=== PATIENT | male | born 1995 | race Caucasian/White ===

== ENCOUNTER 2023-01-13 08:40 | Emergency (ER) | payer SELFPAY ==
--- NOTE | ~2023-01-13 | XR_ITS ---
Lumbosacral Spine: AP and lateral views Clinical History: Pain Findings: The normal lordotic curve is maintained. The vertebral bodies and posterior elements are i ntact. The intervertebral disc spaces are preserved. The sacroiliac joints are normally outlined. Impression: No significant abnormality. Reviewed, dictated and finalized at [facility]. E I ASSISTANT Impression: No significant abnormality.
[2023-01-13 08:41] VITALS: BP 141/81; PULSE 86; RESP 16; TEMP 36.2; O2SAT 99
--- NOTE | 2023-01-13 10:42 | ED.BACK ---
HPI - Back Pain/Injury General Chief Complaint: Back Pain/Injury Stated Complaint: LOW BACK PAIN Time Seen by Provider: 01/13/23 10:07 Source: patient Mode of arrival: ambulatory Limitations: no limitations History of Present Illness HPI Narrative: This is a 27-year-old male that presents to the emergency department for low back pain ongoing over the last week. No known injury or trauma. Reports the pain is in the left side of his low back and radiates into his left leg. Worse with certain movements. He took Aleve the 1st 2 days and it did not help. He has not taken any pain medication since. Denies saddle anesthesia, bowel/bladder incontinence. Related Data Allergies Allergy/AdvReac Type Severity Reaction Status Date / Time No Known Allergies Allergy Unknown Verified 01/13/23 08:53 Review of Systems Review of Systems: CONSTITUTIONAL: Denies fever SKIN: Denies rash MUSCULOSKELETAL: Reports back pain, joint pain, and myalgia. NEUROLOGIC: Denies numbness, or weakness. All systems reviewed & are unremarkable except as noted in HPI and below PMFSH Past Medical History Medical History (Updated 01/13/23 @ 11:58 by Cecelia Albarran PA-C) No active medical problems Social History Social History (Updated 01/13/23 @ 10:44 by Cecelia Albarran PA-C) Smoking status: Current every day smoker Exam Narrative: GENERAL: Well-appearing, well-nourished, and in no acute distress. HEAD: Normocephalic, atraumatic. EYES: EOMI. CHEST: Clear to auscultation. No respiratory distress. No wheezes rales or rhonchi HEART: Regular rate and rhythm. No murmur heard. Normal peripheral pulses. BACK: No midline spinal tenderness EXTREMITIES: Normal range of motion. No edema. Strength equal in bilateral lower extremities (5/5) SKIN: Warm, dry, no rash. NEURO: No focal deficits. Alert and oriented x3. PSYCH: Normal mood and affect Course Course Emergency Course: Patient updated on workup and agrees with plan of care Vital Signs Vital signs: Vital Signs Temperature 97.2 F L 01/13/23 08:41 Pulse Rate 86 01/13/23 08:41 Respiratory Rate 16 01/13/23 08:41 Blood Pressure 141/81 H 01/13/23 08:41 Pulse Oximetry 99 01/13/23 08:41 Oxygen Delivery Room Air 01/13/23 08:41 Temperature 97.2 F L 01/13/23 08:41 Pulse Rate 86 01/13/23 08:41 Respiratory Rate 16 01/13/23 08:41 Blood Pressure 141/81 H 01/13/23 08:41 Pulse Oximetry 99 01/13/23 08:41 Oxygen Delivery Room Air 01/13/23 08:41 MDM - Back Pain/Injury MDM Narrative Medical decision making narrative: Patient presents to the emergency department for low back pain ongoing over the last week. Reports radiation down the left leg. Worse with certain position changes. He is neurovascularly intact. Lumbar spine x-ray without significant findings. Patient was updated on workup. Agrees with plan of care. Instructed to rest, use ice/heat, take over the counter pain medication as needed. Will be prescribed muscle relaxer as needed for pain. He is to follow up with PCP. He was given warnings to return to the ER Differential Diagnosis Differential diagnosis: Likely lumbar radiculopathy, sciatica and strain of lumbar region Imaging Data Radiologist's impression: ITS Impressions Lumbar Spine X-Ray 01/13/23 11:03 Impression: No significant abnormality. Critical Care Time Critical Care Time Critical Care Time: No Discharge Plan Discharge Clinical Impression: Sciatica Qualifiers: Laterality: left Qualified Code(s): M54.32 - Sciatica, left side Patient Disposition: Home, Self-Care Condition: Stable Instructions: Sciatica (ED) Additional Instructions: Return to the ER if you experience weakness, numbness, bowel/bladder incontinence, or any other symptoms that are concerning to you Rest, use ice/heat, take anti-inflammatories (Aleve, Ibuprofen, Naproxen, etc) or Tylenol as needed for pain as well as mus
[2023-01-13] MEDS: ACETAMINOPHEN 500 MG TABLET 1000 MG PO (11:02)
[2023-01-13] MEDS: KETOROLAC 30 MG/ML VIAL (*BKC) IM (11:03)
== END 2023-01-13 12:23 | disposition home or self-care (01) ==
PROVIDERS: Emergency Provider Physician Assistant
DX: M54.32 Sciatica, left side (principal); F17.200 Nicotine dependence, unspecified, uncomplicated
CPT/HCPCS: 72100; 96372; 99283; A9270; J1885

== ENCOUNTER 2024-05-29 00:50 | Emergency (ER) | payer BC, SELFPAY ==
[2024-05-29 00:51] VITALS: BP 123/77; PULSE 101; RESP 20; TEMP 36.4; O2SAT 99
--- OUTSIDE RECORDS SUMMARY | 2024-05-29 00:52 | XMS_ITS | Referral Summary ---
Author Organization [facility] Address [address] [place] [address] Care Team Providers Care Human Services Instructor Name Role Phone Shu Coppola NP Primary Care Provider [phone] Encounters Date Type Department Care Team Description 05/28/2024 10:55 PM CDT - 05/29/2024 12:26 AM CDT Emergency [facility] [address] [place] [address] Discharge Disposition: Left without being seen from Last 3 Months Allergies No known active allergies Medications No known medications Active Problems Problem Noted Date Diagnosed Date Cyst near coccyx 07/22/2020 BMI 27.0-27.9,adult 07/22/2020 Closed fracture of distal end of radius 07/27/19 12 Social History Tobacco Use Types Packs/Day Years Used Date Smoking Tobacco: Every Day Cigarettes 1 10 Smokeless Tobacco: Never AUDIT-C Answer Date Recorded Q1: How often do you have a drink containing alc ohol? Never 07/22/2020 Average Number of Drinks Not on file 021 Q3: How often do you have si x or more drinks on one occasion? Never 07/22/2020 PHQ-2 Answer Date Recorded PHQ-2 Total Score (If total score is 3 or more points, staff should administer the PHQ-9) 0 07/22/2020 Personal Safety Answer Date Recorded Have you ever been in or are you currently in a harmful physical or emotional relationship or is someone making you feel afraid or unsafe? 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 Gender Identity Not on file Sexual Orientation Not on file Last Filed Vital Signs Vital Sign Reading Time Taken Comments Blood Pressure 140/93 05/28/2024 10:56 PM CDT Pulse 86 05/28/2024 10:56 PM CDT Temperature 37.1 C (98.7 F) 05/28/2024 10:56 PM CDT Respiratory Rate 20 05/28/2024 10:56 PM CDT Oxygen Saturation 98% 05/28/2024 10:56 PM CDT Inhaled Oxygen Concentration - - Weight 76.2 kg (168 lb) 07/22/2020 2:15 PM CDT Height 167.6 cm (5' 6 ) 05/28/2024 10:56 PM CDT Body Mass Index 27.12 07/22/2020 2:15 PM CDT Plan of Treatment Not on file Insurance [employer] | [employer] O[employer] Care Teams Human Services Instructor Relationship Specialty Start Date End Date Shu Coppola NP PCP - General Internal Medicine 07/18/20"
--- OUTSIDE RECORDS SUMMARY | 2024-05-29 00:53 | XMS_ITS | Clinical Summary ---
Author Organization [facility] Address [address] [place] [address] Care Team Providers Care Tool Radial Drill Press Set Up Operator Name Role Phone Shu Coppola NP Primary Care Provider [phone] Allergies No known active allergies Medications No known medications Active Problems Problem Noted Date Diagnosed Date Cyst near coccyx 07/22/2020 BMI 27.0-27.9,adult 07/22/2020 Closed fracture of distal end of radius 07/27/19 12 Encounters Date Type Department Care Team Description 05/28/2024 10:55 PM CDT - 05/29/2024 12:26 AM CDT Emergency [facility] [address] [place] [address] Discharge Disposition: Left without being seen from Last 3 Months Surgical History Surgery Date Site/Laterality Comments ARM SURGERY 02/14/2015 - 02/14/2016 Right and wrist Medical History Medical History Date Comments Closed fracture of lower end of ulna Closed fracture of distal end of ulna - (Added by EDWIN Diaz) Family History Medical History Relation Name Comments No Known Problems Father No Known Problems Mother Relation Name Status Comments Father Alive Mother Alive Social History Tobacco Use Types Packs/Day Years [...] on file 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
--- OUTSIDE RECORDS SUMMARY | 2024-05-29 00:53 | XMS_ITS | Encounter Summary ---
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 Gender Identity Not on file Sexual Orientation Not on file documented as of this encounter Last Filed Vital Signs Vital Sign Reading Time Taken Comments Blood Pressure 140/93 05/28/2024 10:56 PM CDT Pulse 86 05/28/2024 10:56 PM CDT Temperature 37.1 C (98.7 F) 05/28/2024 10:56 PM CDT Respiratory Rate 20 05/28/2024 10:56 PM CDT Oxygen Saturation 98% 05/28/2024 10:56 PM CDT Inhaled Oxygen Concentration - - Weight - - Height 167.6 cm (5' 6 ) 05/28/2024 10:56 PM CDT Body Mass Index - - documented in this encounter Discharge Disposition Disposition Code Departure Means Destination Left without being seen documented in this encounter ED Notes * [facility] - 05/28/2024 10:59 PM CDT Pt states My low back has been bothering me since , I felt like it was getting better but tonight I laid down and couldn't get back up. Pt denies saddle anesthesia, able to bear weight, denies trauma to low back. documented in this encounter Plan of Treatment Not on file documented as of this encounter Visit Diagnoses Not on filedocumented in this encounter Care Teams Rn Appeals Relationship Specialty Start Date End Date Shu Coppola NP PCP - General Internal Medicine 07/18/20 documented as of this encounter
--- NOTE | 2024-05-29 01:47 | ED.BACK ---
HPI - Back Pain/Injury General Chief Complaint: Back Pain/Injury Stated Complaint: extreme back pain Time Seen by Provider: 05/29/24 01:46 Source: patient Mode of arrival: ambulatory Limitations: no limitations History of Present Illness HPI Narrative: Patient presents with back pain starting 5 days ago but worse today. He has been taking 2 Tylenol tablets daily and 2 200mg tablets of ibuprofen every day. States it feels like a pinched nerve. Pain is in the low back, just right of the middle. Also has paresthesias/pain along anterolateral right thigh. Wears tight pants/belt, works in construction. He had taken an EMS ambulance to [place] earlier but waited in the waiting room for several hours so presents here. 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 No saddle anethesias. No incontinence bowel/bladder. No dysuria, hematuria, urgency but he has had increased frequency. No fevers, cancer, anticoagulation. No abdominal pain or syncope. No IVDU or immunosuppression like HIV or chronic steroids. Patient has not been annually to see a primary care provider although he does note that he had previously seen his partner's. Their name was Lorna. Related Data Allergies Allergy/AdvReac Type Severity Reaction Status Date / Time No Known Allergies Allergy Unknown Verified 05/29/24 01:05 [facility] Past Medical History Medical History Sciatica, left side December 2022 Social History Social History Smoking status: Current every day smoker Other substance usage details: denies IVDU Occupation/Education: occupation Additional occupation/education comments: construction Exam Narrative: GENERAL: Well-appearing, well-nourished, and in no acute distress. HEAD: Normocephalic, atraumatic. EYES: Non injected, non icteric ENT: Nares clear, no rhinorrhea or epistaxis. NECK: Supple. CHEST: Speaking in full sentences. No respiratory distress. HEART: Regular rate and rhythm. . ABDOMEN: Soft, nondistended. EXTREMITIES: Normal range of motion. No lower extremity edema. SKIN: Warm, dry, no rash. Back: No tenderness to palpation of midline lumbar spinous processes. No bony step offs. No tenderness to palpation of paraspinal muscles which are without spasm. Straight leg test negative bilaterally. Demonstrates flexion/extension and some rotational movement. NEURO: No focal deficits. Alert and oriented x3. 5/5 strength with ankle dorsiflexion/plantarflexion, knee flexion/extension, hip flexion/abduction/adduction. Sensation intact to gross touch in bilateral lower extremities. Patellar reflexes symmetric, brisk. PSYCH: Normal mood and affect. Course Vital Signs Vital signs: Vital Signs Temperature 97.6 F 05/29/24 00:51 Pulse Rate 101 H 05/29/24 00:51 Respiratory Rate 20 05/29/24 00:51 Blood Pressure 123/77 05/29/24 00:51 Pulse Oximetry 99 05/29/24 00:51 Oxygen Delivery Room Air 05/29/24 00:51 Temperature 97.6 F 05/29/24 00:51 Pulse Rate 73 05/29/24 03:44 Respiratory Rate 18 05/29/24 03:44 Blood Pressure 112/73 05/29/24 03:44 Pulse Oximetry 97 05/29/24 03:44 Oxygen Delivery Room Air 05/29/24 00:51 MDM - Back Pain/Injury MDM Narrative Medical decision making narrative: Patient presents with back pain of 5 days duration. In the emergency department he is afebrile vital signs notable for mild tachycardia. Back has no deformities, external skin changes, or signs of trauma. Curvature is within normal limits. No tenderness is noted on palpation of the spinous processes which are midline. Lumbar paraspinal muscles are not tender and are without spasm. Patient demonstrates flexion, extension, and [id number] rotation of the lumbar spine. Sensation to the lower extremities is normal bilaterally. Dorsi/plantar flexion is normal bilaterally. Straight leg raise test is negative bilaterally. They do not have any other red flags for fracture, malignancy, infection (e.g. spinal epidural abscess), or aortic/vascular: Age, no trauma, not on chronic steroids, no cancer, no fever, IV drug use, HIV, immunosuppression, abdominal pain, tearing pain, syncope. He does have increased urinary frequency but otherwise without other urinary symptoms, only 16mL on PVR, and normal UA. Given this, will defer further imaging at this time. Patient was initially given an opiate. Ketorolac was added anti-inflammatory properties. Whenl patient has been reassessed he was still having some pain and so Valium was ordered for muscle relaxation. Patient reassessed approximately 3:15 a.m. and he states he is feeling improved. We discussed appropriate/safe dosing of APAP and NSAIDs and that he can safely increase dose/frequency. Also prescribed muscle relaxer and topical approach. Discussed the role of multimodal pain control to balance rest with maintaining activity. Verifies understanding. Given strict ED return precautions as well as referral to a PCP if needed. Differential Diagnosis Differential diagnosis: Likely sciatica, strain of lumbar region and other (meralgia paresthetica) Medical Records Attestation: I reviewed the patient's medical records. Medical records narrative: Patient was seen for sciatica in December of 2022 Lab Data Labs: Lab Results 05/29/24 Range/Units 02:12 Urine Color Yellow (Yellow) Urine Appearance Clear (Clear) Urine pH 7.5 (5.0-9.0) Ur Specific [place] 1.007 (1.001-1.035) Urine Protein Negative (Negative) mg/dL Urine Glucose (UA) Negative (Negative) mg/dL Urine Ketones Negative (Negative) mg/dL Ur Blood (Man) Negative (Negative) Urine Nitrate Negative (Negative) Urine Bilirubin Negative (Negative) Urine Urobilinogen 0.2 (<2.0) mg/dL Leukocyte Esterase Rfl Negative (Negative) ARAMIS/UL Discharge Plan Discharge Clinical Impression: Strain of lumbar region, Meralgia paresthetica of right side Patient Disposition: Home Condition: Stable Instructions: Antibiotic Form, Low Back Strain (ED), Acute Low Back Pain (ED), Meralgia Paresthetica (ED), Lower Back Exercises (ED) Additional Instructions: As we discussed, the recommendation is for multimodal pain regimen to help you balance some rest but also maintaining staying active and reducing your pain enough to allow you to perform low back stretching/strengthening exercises. The distribution of the pain at the front of your thigh a sounds like meralgia paresthetica and I encouraged to read about this diagnosis and trial not wearing tight pants/belt for a bit to see if there is improvement. Acetaminophen/Tylenol (maximum 4000 mg per day) is safe to take with NSAIDs (ibuprofen/Motrin) for pain relief. In addition a muscle relaxer and topical approaches been prescribed. Follow-up with primary care provider. If you are unable to reestablish with them, the name of the doctors listed below. Return to the ER if you have increased pain in your back, you develop lower extremity weakness/numbness/paralysis, you have numbness or tingling in your private parts, or you are unable to control your ability to urinate/stool. Patient Language: Sammarinese Prescriptions: New lidocaine 4 % adhesive patch,medicated 1 patch topical DAILY PRN (Reason: pain) Qty: 5 0RF methocarbamol 750 mg tablet 750 mg PO HS Qty: 7 0RF ibuprofen 600 mg tablet 600 mg PO TID PRN (Reason: pain) Qty: 30 0RF acetaminophen 500 mg capsule 1,000 mg PO Q6H PRN (Reason: pain) Qty: 100 0RF No Action cyclobenzaprine 10 mg tablet 10 mg PO TID PRN (Reason: muscle spasm) Qty: 14 0RF Follow-up/Referrals: Jayy Perry MD [Physician] - UNKNOWN,DOCTOR [Primary Care Provider] - Stand Alone Forms: Work/School Release IP Time of Disposition: 03:23
[2024-05-29] MEDS: HYDROcodone/acetaminophen (*CRX) 5-325 MG TABLET 1 TAB PO (02:05)
[2024-05-29] MEDS: KETOROLAC 30 MG/ML VIAL (*BKC) 15 MG IM (02:05)
[2024-05-29 02:19] LABS: Add Urine Microscopic? NO; Appearance Urine Clear (Clear); Bilirubin Urine Negative (Negative); Blood Urine Negative (Negative); Color Urine Yellow (Yellow); Glucose Urine UA Negative (Negative); Ketones Urine Negative (Negative); Leukocyte Esterase Ur Negative LEU/UL (Negative); Nitrate Urine Negative (Negative); Protein Urine Negative (Negative); Specific Grav Ur 1.007 (1.001-1.035); Urobilinogen Urine 0.2 mg/dL (<2.0); pH Urine 7.5 (5.0-9.0)
--- OUTSIDE RECORDS SUMMARY | 2024-05-29 02:24 | XMS_ITS | Encounter Summary ---
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
--- OUTSIDE RECORDS SUMMARY | 2024-05-29 02:24 | XMS_ITS | Referral Summary ---
Author Organization [facility] Address [address] [place] [address] Care Team Providers Care Jigger Operator Name Role Phone Shu Coppola NP Primary Care Provider [phone] Encounters Date Type Department Care Team Description 05/28/2024 10:55 PM CDT - 05/29/2024 12:[address] 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 OOS Care Teams Jigger Operator Relationship Specialty Start Date End Date Shu Coppola NP PCP - General Internal Medicine 07/18/20
--- OUTSIDE RECORDS SUMMARY | 2024-05-29 02:24 | XMS_ITS | Clinical Summary ---
Author Organization [facility] Address [address] [place] [address] Care Team Providers Care Tacking Machine Operator Name Role Phone Shu Coppola NP Primary Care Provider [phone] Allergies No known active allergies Medications No known medications Active Problems Problem Noted Date Diagnosed Date Cyst near coccyx 07/22/2020 BMI 27.0-27.9,adult 07/22/2020 Closed fracture of distal end of radius 07/27/19 12 Encounters Date Type Department Care Team Description 05/28/2024 10:55 PM CDT - 05/29/2024 12:26 AM CDT Emergency [facility] [address] [place] [address] Discharge Disposition: Left without being [...] on file 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
[2024-05-29] MEDS: diazePAM (*CRX) 5 MG TABLET 2.5 MG PO (02:54)
[2024-05-29 03:07] VITALS: BP 129/69; PULSE 90; RESP 18; O2SAT 100
[2024-05-29 03:44] VITALS: BP 112/73; PULSE 73; RESP 18; O2SAT 97
== END 2024-05-29 03:44 | disposition home or self-care (01) ==
PROVIDERS: Emergency Provider Student in an Organized Health Care Education/Training Program
DX: S39.012A Strain of muscle, fascia and tendon of lower back, initial encounter (principal); G57.11 Meralgia paresthetica, right lower limb; F17.200 Nicotine dependence, unspecified, uncomplicated; X50.9XXA Other and unspecified overexertion or strenuous movements or postures, initial encounter
CPT/HCPCS: 81003; 96372; 99283; A9270; J1885

== ENCOUNTER 2024-09-22 19:18 | Emergency (ER) | payer BC, SELFPAY ==
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
[2024-09-22 19:27] VITALS: BP 155/86; PULSE 93; RESP 20; TEMP 37.4; O2SAT 95
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
== END 2024-09-22 20:40 | disposition home or self-care (01) ==
PROVIDERS: PCP Nurse Practitioner Family
DX: S42.402A Unspecified fracture of lower end of left humerus, initial encounter for closed fracture (principal); V86.09XA Driver of other special all-terrain or other off-road motor vehicle injured in traffic accident, initial encounter; F17.200 Nicotine dependence, unspecified, uncomplicated
CPT/HCPCS: 29105; 73080; 73090; 73110; 99214; A4565; G0463